=== PATIENT | male | born 1960 | race Caucasian/White ===

== ENCOUNTER 2017-09-18 22:27 | Emergency (ER) | payer MEDICARE, MEDICAID ==
[~2017-09-18] VITALS: Ht 177.8 cm; Wt 104.5 kg
[~2017-09-18 22:27] MED LIST: GABA600T PO; LEVA750T7 PO; NORC7.5T35 PO
[2017-09-18] MEDS ORDERED: ASPIRIN 81 MG CHEW TABLET PO ONE (22:30)
[2017-09-18] MEDS ORDERED: ASPI81TA85 PO (22:38)
[2017-09-18] MEDS ORDERED: HEPARIN DRIP 25,000 UNITS in APPROPRIATE DILUENT 1 EA IV SCH (22:39)
[2017-09-18] MEDS ORDERED: CLOPIDOGREL 300 MG TAB (PLAVIX) PO ONE (22:45)
[2017-09-18] MEDS ORDERED: HEPARIN SOD (PORCINE) 5000 UNITS/ML VIAL IV ONE (22:45)
[2017-09-18] MEDS ORDERED: TENECTEPLASE 50 MG KIT (TNKase)(J3101) IV ONE (22:45)
[2017-09-18] MEDS ORDERED: METOPROLOL TART 25 MG TABLET PO ONE (22:45)
[2017-09-18] MEDS ORDERED: ONDANSETRON 4MG/2ML VIAL (J2405) IV ONE (22:45)
[2017-09-18 22:46] VITALS: BP 117/67
[2017-09-18] MEDS: MORPHINE 4 MG/ML 1ML SYRINGE IV PRN ×2 (22:46→22:55)
[2017-09-18] MEDS: NITROGLYCERIN 0.4 MG SUBL TABLET SL PRN ×2 (22:46→22:57)
[2017-09-18 22:49] LABS: BASO % 0.2 % (0.0-1.0); EOS % 0.1 % (0.0-3.0); IMMATURE GRANULOCYTE % 0.5 % (0-0); LYMPH # 1.9 10^3/uL (1.5-4.5); LYMPH % 10.7 % (24.0-44.0); MEAN CORPUSCULAR HEMOGLOBIN 31.5 pg (27.0-33.0); MEAN CORPUSCULAR HGB CONC 34.7 g/dl (32.0-36.5); MEAN CORPUSCULAR VOLUME 90.7 fl (80.0-96.0); MONO # 0.9 10^3/uL (0.0-0.8); MONO % 5.4 % (0.0-5.0); NEUTROPHILS # 14.6 10^3/uL (1.8-7.7); NEUTROPHILS % 83.1 % (36.0-66.0); PLATELET COUNT, AUTOMATED 277 10^3/uL (150-450); RED CELL DISTRIBUTION WIDTH 12.3 % (11.5-14.5); WHITE BLOOD COUNT 17.5 10^3/uL (4.0-10.0)
[2017-09-18 23:01] LABS: INR 1.07
[2017-09-18] MEDS ORDERED: MORPHINE 4 MG/ML 1ML SYRINGE As Ordered ONE (23:06)
[2017-09-18 23:15] VITALS: BP 144/121
[2017-09-18] MEDS ORDERED: MORPHINE 4 MG/ML 1ML SYRINGE IV PRN (23:15)
[2017-09-18 23:23] LABS: ANION GAP 9 MEQ/L (8-16); BLOOD UREA NITROGEN 19 MG/DL (7-18); CALCIUM LEVEL 8.7 MG/DL (8.5-10.1); CARBON DIOXIDE LEVEL 23 MEQ/L (21-32); CHLORIDE LEVEL 106 MEQ/L (98-107); CREATININE FOR GFR 1.26 MG/DL (0.70-1.30); GLOMERULAR FILTRATION RATE > 60.0 (>56); GLUCOSE, FASTING 121 MG/DL (70-105); SODIUM LEVEL 138 MEQ/L (136-145)
--- NOTE | 2017-09-19 12:59 | REP ---
PORTABLE CHEST: AP portable view of the chest is performed and compared to a prior study of 12/21/2015. Diffuse increased interstitial densities bilaterally are stable with no definite superimposed acute infiltrate. Heart size is essentially upper limits of normal with mild left ventricular prominence. The mediastinal silhouette is unchanged with some calcification of the thoracic aorta. Metallic plate and screws are seen in the lower cervical spine. IMPRESSION: Stable chronic findings as above. Signed by Tomi Barnes MD 09/19/2017 05:36 P
--- NOTE | 2017-09-19 21:37 | ECGEPIP ---
Stationary ECG Study [facility] - ED Test Date: 2017-09-18 Pat Name: MARLENE TRAORE Department: Room: - Gender: M Radio Survey Worker: MICHAELA : 1960 Requested By: RED Tapia Order Number: [id number] Reading MD: Arlene Fiore Measurements Intervals [place] Rate: 107 P: 28 [place]: 150 QRS: -21 QRSD: 85 T: 0 QT: 329 QTc: 440 Interpretive Statements SINUS TACHYCARDIA INFERIOR MYOCARDIAL INFARCTION, ACUTE NJ CLINICAL CORRELATION Electronically Signed On 09-19-2017 21:37:43 EST by Arlene Fiore
--- NOTE | 2017-09-19 21:38 | ECGEPIP ---
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
== END 2017-09-18 23:27 | disposition short-term general hospital (02) ==
LOC: M ED 22:27 → EDBD 22:27 → M ED 23:27
DX: I21.19 ST elevation (STEMI) myocardial infarction involving other coronary artery of inferior wall (principal); R00.0 Tachycardia, unspecified; I25.10 Atherosclerotic heart disease of native coronary artery without angina pectoris; Z95.5 Presence of coronary angioplasty implant and graft; Z79.82 Long term (current) use of aspirin; Z88.1 Allergy status to other antibiotic agents; Z88.8 Allergy status to other drugs, medicaments and biological substances; Z91.018 Allergy to other foods
CPT/HCPCS: 71010; 80048; 82550; 82553; 84484; 85025; 85610; 85730; 93005; 93041; 94760; 96374; 96375; 99291; J2405; J3101

== ENCOUNTER 2017-09-27 23:42 | Observation (INO) | payer MEDICARE, MEDICAID ==
[~2017-09-27] VITALS: Ht 177.8 cm; Wt 100.5 kg
[~2017-09-27 23:42] MED LIST changes: +ASPI81TA85 PO
[2017-09-28] MEDS ORDERED: PLAV1TAB2 PO (00:09)
[2017-09-28] MEDS ORDERED: ASPI81CH32 PO (00:10)
[2017-09-28] MEDS ORDERED: ASPIRIN 81 MG CHEW TABLET As Ordered ONE (00:10)
[2017-09-28] MEDS ORDERED: NITROGLYCERIN 0.4 MG SUBL TABLET As Ordered ONE (00:11)
[2017-09-28] MEDS ORDERED: ASPIRIN 81 MG CHEW TABLET PO ONE (00:15)
[2017-09-28] MEDS: NITROGLYCERIN 0.4 MG SUBL TABLET SL PRN ×2 (00:19→14:43)
[2017-09-28] MEDS ORDERED: NS 1,000 ML IV ONE (00:30)
[2017-09-28 00:33] LABS: ANION GAP 8 MEQ/L (8-16); BLOOD UREA NITROGEN 15 MG/DL (7-18); CALCIUM LEVEL 8.8 MG/DL (8.5-10.1); CARBON DIOXIDE LEVEL 29 MEQ/L (21-32); CHLORIDE LEVEL 103 MEQ/L (98-107); CREATININE FOR GFR 1.25 MG/DL (0.70-1.30); GLOMERULAR FILTRATION RATE > 60.0 (>56); GLUCOSE, FASTING 116 MG/DL (70-105); MEAN CORPUSCULAR HEMOGLOBIN 31.5 pg (27.0-33.0); MEAN CORPUSCULAR HGB CONC 34.4 g/dl (32.0-36.5); MEAN CORPUSCULAR VOLUME 91.6 fl (80.0-96.0); PLATELET COUNT, AUTOMATED 334 10^3/uL (150-450); POTASSIUM SERUM 4.2 MEQ/L (3.5-5.1); SODIUM LEVEL 140 MEQ/L (136-145); WHITE BLOOD COUNT 8.2 10^3/uL (4.0-10.0)
[2017-09-28 00:40] LABS: ADD MANUAL DIFFER YES; DIFF SLIDE NUMBER 133; POSITIVE MORPH POS FLAG
[2017-09-28 02:22] LABS: BASOPHILS 2 % (0-4); EOSINOPHILS 2 % (0-5)
--- NOTE | 2017-09-28 05:48 | ECGEPIP ---
Stationary ECG Study [facility] - ED Test Date: 2017-09-27 Pat Name: MARLENE TRAORE Department: Room: - Gender: M Sheriff'S Officer: TRANG : 1960 Requested By: RED Tapia Order Number: [id number] Reading MD: Leonel Montalvo Measurements Intervals [place] Rate: 65 P: 44 TN: 157 QRS: -20 QRSD: 94 T: -34 QT: 388 QTc: 405 Interpretive Statements SINUS RHYTHM INFERIOR MYOCARDIAL INFARCTION, PROBABLY RECENT Electronically Signed On 09-28-2017 5:48:47 EST by Leonel Montalvo
--- NOTE | 2017-09-28 05:49 | ECGEPIP ---
Stationary ECG Study [facility] - ED Test Date: 2017-09-28 Pat Name: MARLENE TRAORE Department: Room: - Gender: M Project Manager Industrial: FRANCESCA : 1960 Requested By: RED Tapia Order Number: [id number] Reading MD: Leonel Montalvo Measurements Intervals [place] Rate: 61 P: 61 [place]: 156 QRS: -15 QRSD: 98 T: -46 QT: 414 QTc: 417 Interpretive Statements SINUS RHYTHM INFERIOR MYOCARDIAL INFARCTION, PROBABLY RECENT SIMILAR TO 09/27/17 Electronically Signed On 09-28-2017 5:49:21 EST by Leonel Montalvo
[2017-09-28] MEDS ORDERED: CLOPIDOGREL 75 MG TAB PO ONE (08:00)
[2017-09-28] MEDS ORDERED: OMEPRAZOLE 20 MG CAP PO ONE (08:00)
--- NOTE | 2017-09-28 08:00 | REP ---
Clinical: Chest pain . Comparison: 09/18/2017 . Findings: The mediastinum and cardiac silhouette are stable and within normal limits for portable technique. The lung pruett are clear without acute consolidation, effusion, or pneumothorax. Skeletal structures are intact. Impression: No acute cardiopulmonary process appreciated. Signed by Marc Tena MD 09/28/2017 07:51 A
[2017-09-28] MEDS: CLOPIDOGREL 75 MG TAB PO SCH (09:00)
[2017-09-28] MEDS ORDERED: CARV3.12 PO (09:34)
[2017-09-28] MEDS ORDERED: VITA200038 PO (09:35)
[2017-09-28] MEDS ORDERED: NITR4TASL SL (09:36)
[2017-09-28] MEDS ORDERED: MORPHINE 2 MG/ML 1ML SYRINGE IV PRN (10:45)
[2017-09-28] MEDS ORDERED: ACETAMINOPHEN TAB 650MG DOSE (2X325MG) PO PRN (10:45)
[2017-09-28] MEDS: ASPIRIN 81 MG CHEW TABLET PO SCH (14:03)
[2017-09-28] MEDS: CARVedilol 3.125 MG TAB PO SCH ×2 (14:03→22:36)
[2017-09-28] MEDS: VITAMIN D 1,000 INTERNATIONAL UNITS TABLET PO SCH (14:04)
[2017-09-28] MEDS: HEPARIN SOD (PORCINE) 5000 UNITS/ML VIAL SC SCH ×2 (14:17→22:35)
[2017-09-28] MEDS ORDERED: PANTOPRAZOLE 40MG INJ (PROTONIX) (C9113) IV ONE (15:00)
[2017-09-28 16:03] LABS: ALBUMIN 3.1 GM/DL (3.2-5.2); ALBUMIN/GLOBULIN RATIO 0.78 (1.00-1.93); ALKALINE PHOSPHATASE 72 U/L (45-117); ALT/SGPT 38 U/L (12-78); ANION GAP 7 MEQ/L (8-16); AST/SGOT 22 U/L (7-37); BILIRUBIN,TOTAL 0.3 MG/DL (0.2-1.0); BLOOD UREA NITROGEN 13 MG/DL (7-18); CALCIUM LEVEL 8.2 MG/DL (8.5-10.1); CARBON DIOXIDE LEVEL 25 MEQ/L (21-32); CHLORIDE LEVEL 108 MEQ/L (98-107); CREATININE FOR GFR 0.98 MG/DL (0.70-1.30); GLOMERULAR FILTRATION RATE > 60.0 (>56); GLUCOSE, FASTING 98 MG/DL (70-105); MAGNESIUM LEVEL 2.1 MG/DL (1.8-2.4); POTASSIUM SERUM 4.3 MEQ/L (3.5-5.1); SODIUM LEVEL 140 MEQ/L (136-145); TOTAL PROTEIN 7.1 GM/DL (6.4-8.2)
--- NOTE | 2017-09-28 16:42 | ECGEPIP ---
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
--- NOTE | 2017-09-28 18:08 | HPE ---
DATE OF ADMISSION: 09/28/2017 PRIMARY CARE PROVIDER: Dr. Washington HISTORY OF PRESENT ILLNESS: This patient is a 57-year-old male with past medical history significant for recent myocardial infarction (SD) presented to [facility] for acute onset of pressure-like chest pain and shortness of breath. The patient has a significant cardiac history. Previously the patient had three stents placed in 2009. On 09/18/2017 the patient had another episode of myocardial infarction (SD). The patient went to [facility] to get another stent placement. Then patient was discharged home. Yesterday at approximately 10:00 p.m. there was acute onset of pressure type of pain, woke patient up from his sleep. The pain does not have radiation. It has been persistent, lasting approximately one-half hour. The patient stated laying down flat made the pain worse. Nitroglycerin made the patient's pain better, therefore the patient came to [facility] emergency for further evaluation. While the patient was in the emergency room the patient had another episode of chest pain lasting approximately 10 minutes and it got better with nitroglycerin again. Laboratory tests and EKG was performed. There was some mild increase in his troponin and there is some T wave and ST changes suggestive of recent myocardial infarction (SD) and therefore the case was discussed with Dr. Raza and hospitalist team called for admission. PAST MEDICAL HISTORY: Hyperlipidemia. Myocardial infarction, most recent episode occurred 09/18/2017. The patient status post additional stent placement. History of cervical radiculopathies. Status post repair surgery. PAST SURGICAL HISTORY: Cervical neck surgery with anterior approach. Total four cardiac stent placed. Three of them placed in 2009, one placed 09/18/2017. Bilateral rotator cuff repair. Knee repair surgery. Appendectomy. SOCIAL HISTORY: The patient used to smoke three packs daily. Quit approximately four years ago. Since then the patient continues to smoke intermittently, but not as much as three packs on a daily basis. Denies alcohol use. Denies recreational drug use. REVIEW OF SYSTEMS: GENERAL: Denies any fever or chills. HEENT: No vision changes, no auditory changes. CARDIOVASCULAR: Significant history of SD. Presented with pressure-like chest pain. One episode occurred at home, and then another episode while the patient was in the emergency room. The chest pain is pressure-like without radiation and it was persistent. RESPIRATORY: Increased shortness of breath while patient has those chest pain episodes. Denies any pulmonary history. GI: Remote history of heart burn. No nausea, no vomiting. No abdominal pain or diarrhea. MUSCULOSKELETAL: No muscle pain or joint pain. NEUROLOGICAL: Denies any numbness or tingling. OBJECTIVE: VITAL SIGNS: Temperature is 70, respiration rate is 18. Temperature is 97.1. Blood pressure 124/75. Pulse oximetry 97% on room air. GENERAL: No sign of acute distress. Alert and oriented times three. HEENT: Normocephalic, atraumatic. Extraocular movements grossly intact. CARDIOVASCULAR: Distant heart sound, positive S1, S2, regular rate. LUNGS: Clear to auscultation bilaterally. ABDOMEN: Soft, nontender, nondistended. Bowel sounds present. No rebound. No guarding. EXTREMITIES: Musculoskeletal: No lower extremity edema. No sign of cyanosis. There are some tattoo throughout the body. NEUROLOGICAL: No numbness, no tingling. Muscle strength 5 out of 5. LABORATORY DATA: WBC 8.2, hemoglobin is 14.7, hematocrit is 42.7. Platelet count is 334. Sodium is 140, potassium 1.3, chloride is 108. Carbon dioxide 25, BUN 13, creatinine 0.98. GFR greater than 60, fasting glucose is 98. Calcium 8.2, magnesium 2.1, total bilirubin is 0.3. AST 22, ALT 38, alkaline phosphatase 72, troponin I, most recent set is 0.18. Total protein 7.1, albumin 3.1. EKG: Showed sinus rhythm, inferior myocardial infarction, probably recent. ASSESSMENT AND PLAN: 1. Acute chest pain with a history of recent SD. The case was discussed with the machine pie maker, Dr. Raza who recommended overnight observation. On admission, the patient did have troponin of 0.24. However, later set of troponin continued to trend down. The patient will be monitored on cardiac telemetry. The patient is on aspirin, Coreg, and Plavix. The patient did have three stent placed in 2009, most recently 09/18/2017, the patient was brought down to [facility] and got another cardiac stent placed. 2. Dyslipidemia. Per history the patient cannot tolerate any type of statin therapy. 3. Deep venous thrombosis (DVT) prophylaxis. On heparin. ADDENDUM: KS since admission. The patient has another episode of acute chest pain lasting approximately 15 minutes. It resolved with nitroglycerin. Stat lab and stat EKG were obtained which results show improving troponin and there is no change in EKG. During the multiple followups the patient felt that it could be due to anxiety induced chest discomfort. Prior to the chest pain, the patient was frustrated with regard to his emergency room bed. It was so stiff that it made his back hurt and he got irritated and he felt that could trigger his acute chest pain.
[2017-09-28 19:58] VITALS: BP 109/67
--- NOTE | 2017-09-28 23:06 | CR ---
DATE OF CONSULTATION: 09/28/2017 REFERRING PHYSICIAN: Asha Villasenor MD PRIMARY CARE PROVIDER: USAMA Sheppard INDICATION: Chest pain in patient with recent myocardial infarction. HISTORY OF PRESENT ILLNESS: Mr. Soria is previously unknown to me. He is a 57-year-old man who has established coronary artery disease. He underwent percutaneous intervention in 2009 after presenting with acute coronary syndrome and second intervention on September 18, 2017 when he presented initially to our facility with acute inferior wall ST elevation myocardial infarction. He received thrombolytics and was transferred to [facility] where he had a very complicated percutaneous intervention. I do not have the official report of the procedure, but I spoke with Dr. Carmichael and he told me that he had complete revascularization, there was no residual obstructive disease and pre-discharge echocardiogram revealed left ventricle ejection fraction in the neighborhood of 45% with inferior wall hypokinesis. The patient was discharged home and was doing well, but then yesterday started having what he calls "spasm" in his chest on and off during the day. It was not overly severe sensation so he did not make any trips to emergency room or was not particularly alarmed, but then in the evening hours he started having pressure or heaviness that was precordial and nonradiating. It was associated with dyspnea. He noted that lying down made the sensation of both dyspnea and chest discomfort worse. After some hesitation, he eventually came to the emergency room on insistence of his . The initial ECG revealed presence of sinus rhythm with evidence of recent inferior wall myocardial infarction with still some persistent ST elevations and his troponin was marginally elevated at 0.24 (his peak troponin at [facility] was over 30). I was called by emergency room physician and I recommended to obtain a followup tracing especially when the patient became pain free after sublingual nitroglycerin. The follow-up ECGs and troponins revealed no evolution on ECG and his troponin has been going down. He had several more episodes of chest discomfort in emergency room that each lasted a few minutes and resolved spontaneously. At the time of my evaluation when I saw the patient in morning hours he was comfortable. He was describing the history quite accurately. PAST MEDICAL HISTORY: 1. Coronary artery disease as above. 2. Hyperlipidemia. Unfortunately, intolerant of statins, even small doses. He denies history of hypertension and diabetes. PAST SURGICAL HISTORY: Positive for cervical discectomy from anterior approach, bilateral rotator cuff repair, knee surgery and appendectomy. FAMILY HISTORY: Is strongly positive for coronary artery disease. He tells me that virtually every man in his family suffered myocardial infarction by the age of 60 and that includes is first-degree relatives. SOCIAL HISTORY: The patient used to smoke but quit about 4 years ago, but still had occasional cigarettes, but as of lately he denies any since his recent intervention. There is no history of alcohol use and no history of drug use. REVIEW OF SYSTEMS: He denies any fever, chills, nausea, vomiting, diarrhea. No chest pain since the intervention until yesterday. No dyspnea. No palpitations. No syncope, near syncope. No bleeding problems. The rest of review of system is negative. PHYSICAL EXAMINATION: Mr. Soria is a middle-aged man who appears to be approximately his age. He is lying in bed with no apparent distress. Blood pressure 109/67, heart rate in mostly in 60s and 70s. Saturation is 95% on room air. Vital signs have been stable throughout the day. Weight is documented 99.5 kg. He is alert and oriented and appropriate. His jugular venous pressure is not elevated. I do not appreciate any carotid bruits. Lungs are clear to auscultation with good air movement. Heart: Exam regular rhythm. No gallop, rub or murmur. Abdomen: Soft without tenderness or rebound tenderness. He has good peripheral pulses bilaterally. There is no peripheral edema and neurologically he is intact. LABORATORY: CBC is normal and his cardiac enzymes have been negative at the time of my dictation time, 4 for CK and CK-MB. His troponin initially was 0.24 and has been going down since. Albumin is 3.1. Basic metabolic panel is otherwise normal. Liver function tests are normal as well. He has several ECGs, all which are unchanged and reveal recent inferior wall myocardial infarction with persistent ST elevations, but I do not appreciate any trend. Chest x-ray is unremarkable. OUTPATIENT MEDICATIONS: Included - aspirin 81 mg a day - Plavix 75 mg a day - Vitamin D - Coreg 3.5 twice a day. ALLERGIES: He reports intolerance of CLINDAMYCIN, EPINEPHRINE, MUSHROOM, and STATINS. ASSESSMENT/PLAN: Mr. Soria is a middle-aged man who has established coronary artery disease (CAD) and who suffered inferior wall STEMI a week ago, treated with initially thrombolytics and then percutaneous intervention. He comes with chest discomfort that has some features of angina, but overall is atypical. In spite of numerous episodes there is no evolution on ECG and even though his troponin is still mildly elevated, it certainly represents a tail elevation from his recent myocardial infarction. I still think it is prudent to monitor the patient overnight, but provided there will not be any evolution on his ECG and his cardiac enzymes will continue to trend downward, I think he can be discharged home tomorrow. I would continue aspirin and Plavix which is absolutely essential. The patient claims that he cannot get lipid lowering medications even in small doses because he just could not tolerate them. Also his blood pressure is relatively low to tolerate angiotensin-converting enzyme (CRESENCIO) inhibitors, but I think we can try to give him a low-dose beta-connie that he has been on. I tentatively expect that I will be seeing him on outpatient basis. He previously followed with Dr. Pardeep Honeycutt in [facility] in [place], but it has been difficult for him to commute to [place].
[2017-09-29] VITALS: BP 115/71
[2017-09-29] MEDS ORDERED: RAMELTEON 8 MG TAB (ROZEREM) PO PRN (03:00)
[2017-09-29 04:00] VITALS: BP 135/83
[2017-09-29] MEDS: HEPARIN SOD (PORCINE) 5000 UNITS/ML VIAL SC SCH (06:31)
[2017-09-29 07:19] LABS: MEAN CORPUSCULAR HEMOGLOBIN 31.6 pg (27.0-33.0); MEAN CORPUSCULAR HGB CONC 35.1 g/dl (32.0-36.5); PLATELET COUNT, AUTOMATED 314 10^3/uL (150-450); WHITE BLOOD COUNT 8.2 10^3/uL (4.0-10.0)
[2017-09-29 07:45] LABS: ANION GAP 8 MEQ/L (8-16); BLOOD UREA NITROGEN 15 MG/DL (7-18); CALCIUM LEVEL 8.5 MG/DL (8.5-10.1); CARBON DIOXIDE LEVEL 26 MEQ/L (21-32); CHLORIDE LEVEL 104 MEQ/L (98-107); CHOLESTEROL LEVEL 170 MG/DL (<200); GLOMERULAR FILTRATION RATE > 60.0 (>56); GLUCOSE, FASTING 104 MG/DL (70-105); POTASSIUM SERUM 4.3 MEQ/L (3.5-5.1); SODIUM LEVEL 138 MEQ/L (136-145); TRIGLYCERIDES LEVEL 563 MG/DL (<150)
[2017-09-29 08:00] VITALS: BP 113/64
[2017-09-29] MEDS: CARVedilol 3.125 MG TAB PO SCH (08:00)
--- NOTE | 2017-09-29 08:05 | ECGEPIP ---
Stationary ECG Study [facility] - ED Test Date: 2017-09-28 Pat Name: MARLENE TRAORE Department: Room: [place] [address] Gender: M Corporate Logistics Manager: TRANG : 1960 Requested By: RED Tapia Order Number: [id number] Reading MD: Arlene Fiore Measurements Intervals [place] Rate: 57 P: 56 MD: 168 QRS: -8 QRSD: 95 T: -45 QT: 416 QTc: 408 Interpretive Statements SINUS BRADYCARDIA INFERIOR MYOCARDIAL INFARCTION, ACUTE IN [place] 09/27/17 23:56 Electronically Signed On 09-29-2017 8:04:45 EST by Arlene Fiore
[2017-09-29] MEDS ORDERED: CORE6.25 PO (09:17)
[2017-09-29] MEDS ORDERED: PANT40TA2 PO (09:19)
[2017-09-29] MEDS: CLOPIDOGREL 75 MG TAB PO SCH (10:17)
[2017-09-29] MEDS: VITAMIN D 1,000 INTERNATIONAL UNITS TABLET PO SCH (10:17)
[2017-09-29] MEDS: ASPIRIN 81 MG CHEW TABLET PO SCH (10:17)
--- NOTE | 2017-09-29 10:41 | ECGEPIP ---
Stationary ECG Study [facility] Test Date: 2017-09-29 Pat Name: MARLENE TRAORE Department: Room: [place] [address] Gender: M Cna Gna: ebony : 1960 Requested By: Olaf Raza Order Number: [id number] Reading MD: Lindsay Alcaraz Measurements Intervals [place] Rate: 58 P: 24 FL: 152 QRS: -10 QRSD: 101 T: -55 QT: 446 QTc: 438 Interpretive Statements SINUS BRADYCARDIA INFERIOR MYOCARDIAL INFARCTION, PROBABLY RECENT EVOLVING STABLE C/W 09/28/17 RATE SLOWER Electronically Signed On 09-29-2017 10:41:01 EST by Lindsay Alcaraz
--- NOTE | 2017-10-07 06:56 | DSES ---
DATE OF ADMISSION: 09/28/2017 DATE OF DISCHARGE: 09/29/2017 PRIMARY CARE PROVIDER: Dr. Washington. CONSULTANTS: Cardiology, Dr. Raza. DISCHARGE DIAGNOSES: 1. Acute chest pain with a history of recent myocardial infarction (IA). 2. Dyslipidemia. HOSPITALIZATION COURSE: The patient is a 57-year-old male who presented to [facility] on 09/28/2017, with chest pain. Due to history of recent IA on 09/18/2017, the patient was admitted to the progressive care unit (PCU), and aircraft maintenance director, Dr. Raza, was consulted, who recommended overnight cardiac telemetry. Later the patient was followed with serial troponin and repeat electrocardiogram (EKG) was obtained, and there was no significant finding on the EKG, and there was only mild elevation of troponin which has been improved within a few hours. After close monitoring on telemetry and reevaluation by the aircraft maintenance director the next morning, the patient determined stable for discharge with recommendation to followup with Dr. Raza at a scheduled time. The patient is recommended to continue with essential cardiac medication and those instructions were given to the patient. The patient agreed with the plan. OBJECTIVE: VITAL SIGNS: Temperature 97.6, pulse 62, respirations 18, blood pressure 133/64, pulse oximetry 94% on room air. LABORATORY DATA: WBC 8.2, hemoglobin 14.3, hematocrit 40.7, platelet count 314. Sodium 138, potassium 4.3, chloride 104, carbon dioxide 26, BUN 15, creatinine one, GFR greater than 60, fasting glucose 104, calcium 8.5. Triglycerides 553, total cholesterol 170, HDL 17. Troponin series during hospitalization course on 09/28/2017, troponins were 0.24, 0.22, 0.21, 0.18 in a 15-hour span. IMAGING: Chest x-ray on 09/28/2017, showed no acute cardiopulmonary process appreciated. DISCHARGE MEDICATIONS: - carvedilol 6.25 mg by mouth twice a day - pantoprazole 40 mg by mouth daily - aspirin 81 mg by mouth daily - vitamin D3 2000 units by mouth daily - Plavix 75 mg by mouth daily - nitroglycerin 0.4 mg sublingual as needed for chest pain DISCHARGE INSTRUCTIONS: Discontinue line. Discharge home. Activity as tolerated. Low-salt diet as tolerated. The patient shall followup with Dr. Raza in one week. The patient should followup with the primary care provider in 7-10 days. CONDITION ON DISCHARGE: Stable. DISCHARGE TIME: Greater than 30 minutes.
== END 2017-09-29 11:18 | disposition home or self-care (01) ==
LOC: M ED 23:42 → M ED INP 23:43 → UNDOADMOB 09-28 10:32 → UNDODISOB 09-29 11:18
PROVIDERS: ADMIT Internal Medicine; ATTEND Internal Medicine
DX: I21.19 ST elevation (STEMI) myocardial infarction involving other coronary artery of inferior wall (principal); I25.10 Atherosclerotic heart disease of native coronary artery without angina pectoris; E78.5 Hyperlipidemia, unspecified; R79.89 Other specified abnormal findings of blood chemistry; Z95.5 Presence of coronary angioplasty implant and graft; Z87.891 Personal history of nicotine dependence; Z79.899 Other long term (current) drug therapy; Z79.82 Long term (current) use of aspirin; Z79.02 Long term (current) use of antithrombotics/antiplatelets; Z88.1 Allergy status to other antibiotic agents; Z88.4 Allergy status to anesthetic agent; Z88.8 Allergy status to other drugs, medicaments and biological substances; Z91.018 Allergy to other foods; Z82.49 Family history of ischemic heart disease and other diseases of the circulatory system
CPT/HCPCS: 36415; 71010; 80048; 80053; 80061; 82550; 82553; 83735; 84484; 85025; 85027; 93005; 93041; 94760; 96372; 96374; 99285; C9113; G0378

== ENCOUNTER 2017-12-10 10:33 | Emergency (ER) | payer BC, MEDICAID, MEDICARE ==
[2017-12-10 10:54] LABS: BASO % 0.3 % (0.0-1.0); EOS # 0.2 10^3/uL (0.0-0.50); EOS % 2.3 % (0.0-3.0); HEMATOCRIT 44.2 % (42.0-52.0); HEMOGLOBIN 15.6 g/dl (14.0-18.0); IMMATURE GRANULOCYTE % 0.5 % (0-3.0); LYMPH # 2.9 10^3/uL (1.5-4.5); LYMPH % 32.9 % (24.0-44.0); MEAN CORPUSCULAR HEMOGLOBIN 31.1 pg (27.0-33.0); MEAN CORPUSCULAR HGB CONC 35.3 g/dl (32.0-36.5); MONO # 0.7 10^3/uL (0.0-0.8); MONO % 8.2 % (0.0-5.0); NEUTROPHILS # 4.8 10^3/uL (1.8-7.7); NEUTROPHILS % 55.8 % (36.0-66.0); PLATELET COUNT, AUTOMATED 216 10^3/uL (150-450); RED BLOOD COUNT 5.02 10^6/uL (4.30-6.10); RED CELL DISTRIBUTION WIDTH 11.9 % (11.5-14.5); WHITE BLOOD COUNT 8.7 10^3/uL (4.0-10.0)
[2017-12-10 11:08] LABS: INR 0.95; PROTHROMBIN TIME 12.8 SECONDS (12.4-14.5)
[2017-12-10 11:20] LABS: ALBUMIN 3.6 GM/DL (3.2-5.2); ALBUMIN/GLOBULIN RATIO 0.86 (1.00-1.93); ALKALINE PHOSPHATASE 69 U/L (45-117); ALT/SGPT 55 U/L (12-78); ANION GAP 7 MEQ/L (8-16); AST/SGOT 29 U/L (7-37); BILIRUBIN,DIRECT < 0.1 MG/DL (0.0-0.2); BILIRUBIN,TOTAL 0.3 MG/DL (0.2-1.0); BLOOD UREA NITROGEN 17 MG/DL (7-18); CALCIUM LEVEL 8.6 MG/DL (8.5-10.1); CARBON DIOXIDE LEVEL 27 MEQ/L (21-32); CHLORIDE LEVEL 104 MEQ/L (98-107); CPK CREATINE PHOSPHOKINASE 111 U/L (39-308); CREATININE FOR GFR 1.14 MG/DL (0.70-1.30); GLOMERULAR FILTRATION RATE > 60.0 (>56); GLUCOSE, FASTING 121 MG/DL (70-100); POTASSIUM SERUM 4.1 MEQ/L (3.5-5.1); SODIUM LEVEL 138 MEQ/L (136-145); TOTAL PROTEIN 7.8 GM/DL (6.4-8.2); TROPONIN I 0.02 NG/ML (< 0.10)
[2017-12-10 11:26] LABS: CK-MB VALUE MASS 1.4 NG/ML (0.0-3.6); MB/CK RELATIVE INDEX 1.26 (< OR =4); NT-PRO BNP 772 PG/ML (<125)
[2017-12-10 13:16] LABS: CPK CREATINE PHOSPHOKINASE 111 U/L (39-308); TROPONIN I 0.02 NG/ML (< 0.10)
[2017-12-10 13:17] LABS: CK-MB VALUE MASS 1.2 NG/ML (0.0-3.6); MB/CK RELATIVE INDEX 1.08 (< OR =4)
[2017-12-10 20:39] LABS: CK-MB VALUE MASS 1.3 NG/ML (0.0-3.6); CPK CREATINE PHOSPHOKINASE 105 U/L (39-308); MB/CK RELATIVE INDEX 1.23 (< OR =4); TROPONIN I 0.02 NG/ML (< 0.10)
== END 2017-12-10 21:17 | disposition home or self-care (01) ==
LOC: M ED 10:33
DX: R07.89 Other chest pain (principal); I25.2 Old myocardial infarction; I10 Essential (primary) hypertension; E78.00 Pure hypercholesterolemia, unspecified; Z95.5 Presence of coronary angioplasty implant and graft; Z87.891 Personal history of nicotine dependence; Z88.1 Allergy status to other antibiotic agents; Z88.8 Allergy status to other drugs, medicaments and biological substances; Z91.018 Allergy to other foods; Z79.899 Other long term (current) drug therapy; Z79.02 Long term (current) use of antithrombotics/antiplatelets; Z79.82 Long term (current) use of aspirin
CPT/HCPCS: 71045

== ENCOUNTER 2018-05-26 10:58 | Emergency (ER) | payer BC, MEDICAID, MEDICARE ==
[2018-05-26 11:31] LABS: BASO % 0.6 % (0.0-1.0); EOS # 0.1 10^3/uL (0.0-0.50); EOS % 1.9 % (0.0-3.0); HEMATOCRIT 44.6 % (42.0-52.0); HEMOGLOBIN 15.7 g/dl (13.5-17.5); IMMATURE GRANULOCYTE % 0.3 % (0-3.0); LYMPH # 1.7 10^3/uL (1.5-4.5); LYMPH % 23.8 % (24.0-44.0); MEAN CORPUSCULAR HGB CONC 35.2 g/dl (32.0-36.5); MEAN CORPUSCULAR VOLUME 90.8 fl (80.0-96.0); MONO # 0.5 10^3/uL (0.0-0.8); MONO % 6.7 % (0.0-5.0); NEUTROPHILS # 4.9 10^3/uL (1.8-7.7); NEUTROPHILS % 66.7 % (36.0-66.0); PLATELET COUNT, AUTOMATED 194 10^3/uL (150-450); RED BLOOD COUNT 4.91 10^6/uL (4.30-6.10); RED CELL DISTRIBUTION WIDTH 11.9 % (11.5-14.5); WHITE BLOOD COUNT 7.3 10^3/uL (4.0-10.0)
[2018-05-26] MEDS: ONDANSETRON 4MG/2ML VIAL (J2405) IV (11:32)
[2018-05-26] MEDS: MORPHINE 4 MG/ML 1ML VIAL/SYRINGE (J2270) IV (11:33)
[2018-05-26 12:06] LABS: ALBUMIN 3.9 GM/DL (3.2-5.2); ALBUMIN/GLOBULIN RATIO 1.03 (1.00-1.93); ALKALINE PHOSPHATASE 49 U/L (45-117); ALT/SGPT 46 U/L (12-78); ANION GAP 6 MEQ/L (8-16); AST/SGOT 29 U/L (7-37); BILIRUBIN,DIRECT 0.1 MG/DL (0.0-0.2); BILIRUBIN,TOTAL 0.5 MG/DL (0.2-1.0); BLOOD UREA NITROGEN 17 MG/DL (7-18); CALCIUM LEVEL 9.8 MG/DL (8.5-10.1); CARBON DIOXIDE LEVEL 26 MEQ/L (21-32); CHLORIDE LEVEL 110 MEQ/L (98-107); CPK CREATINE PHOSPHOKINASE 282 U/L (39-308); CREATININE FOR GFR 1.49 MG/DL (0.70-1.30); GLOMERULAR FILTRATION RATE 51.8 (>56); GLUCOSE, FASTING 110 MG/DL (70-100); LIPASE 147 U/L (73-393); POTASSIUM SERUM 4.8 MEQ/L (3.5-5.1); SODIUM LEVEL 142 MEQ/L (136-145); TOTAL PROTEIN 7.7 GM/DL (6.4-8.2); TROPONIN I < 0.02 NG/ML (< 0.10)
[2018-05-26 12:12] LABS: CK-MB VALUE MASS 2.9 NG/ML (<3.6); MB/CK RELATIVE INDEX 1.02 (< OR =4); NT-PRO BNP 1161 PG/ML (<125)
[2018-05-26] MEDS ORDERED: ISOVUE-370 76% 100ML VIAL (Q9967) As Ordered (14:17)
[2018-05-26 18:13] LABS: CK-MB VALUE MASS 2.4 NG/ML (<3.6); CPK CREATINE PHOSPHOKINASE 212 U/L (39-308); MB/CK RELATIVE INDEX 1.13 (< OR =4); TROPONIN I < 0.02 NG/ML (< 0.10)
== END 2018-05-26 19:04 | disposition home or self-care (01) ==
LOC: M ED 10:58
DX: R07.9 Chest pain, unspecified (principal); E78.5 Hyperlipidemia, unspecified; I25.10 Atherosclerotic heart disease of native coronary artery without angina pectoris; I25.2 Old myocardial infarction; M54.12 Radiculopathy, cervical region; Z95.5 Presence of coronary angioplasty implant and graft; Z79.899 Other long term (current) drug therapy; Z79.82 Long term (current) use of aspirin; Z79.02 Long term (current) use of antithrombotics/antiplatelets; Z88.1 Allergy status to other antibiotic agents; Z88.8 Allergy status to other drugs, medicaments and biological substances; Z91.018 Allergy to other foods
CPT/HCPCS: J2270

== ENCOUNTER → 2018-07-18 | Outpatient (CLI) | payer BC | LOC: M SMT 11:23 | DX: R05 Cough (principal); I50.9 Heart failure, unspecified | CPT/HCPCS: 71046 ==

== ENCOUNTER 2018-10-27 22:45 | Emergency (ER) | payer BC ==
[~2018-10-27] VITALS: Ht 177.8 cm; Wt 109.3 kg
[~2018-10-27 22:45] MED LIST changes: +ASPI81CH32 PO; +CARV3.12 PO; +CORE6.25 PO; +FENO145T13; -GABA600T PO; +GABA600T4 PO; +NITR4TASL SL; +PANT40TA3 PO; +PLAV1TAB2 PO; +VITA200038 PO
[2018-10-27 23:28] LABS: BASO % 0.5 % (0.0-1.0); EOS # 0.2 10^3/uL (0.0-0.50); EOS % 2.6 % (0.0-3.0); HEMATOCRIT 40.5 % (42.0-52.0); HEMOGLOBIN 14.3 g/dl (13.5-17.5); LYMPH # 2.5 10^3/uL (1.5-4.5); LYMPH % 31.3 % (24.0-44.0); MEAN CORPUSCULAR HEMOGLOBIN 32.8 pg (27.0-33.0); MEAN CORPUSCULAR HGB CONC 35.3 g/dl (32.0-36.5); MEAN CORPUSCULAR VOLUME 92.9 fl (80.0-96.0); MONO # 0.6 10^3/uL (0.0-0.8); MONO % 7.2 % (0.0-5.0); NEUTROPHILS # 4.7 10^3/uL (1.8-7.7); PLATELET COUNT, AUTOMATED 231 10^3/uL (150-450); RED BLOOD COUNT 4.36 10^6/uL (4.30-6.10)
[2018-10-27] MEDS ORDERED: CARV12.5 PO (23:30)
[2018-10-27] MEDS ORDERED: LISI10TA4 PO (23:31)
[2018-10-27] MEDS ORDERED: EZET10TA PO (23:31)
[2018-10-27] MEDS ORDERED: TORS5TAB2 PO (23:32)
[2018-10-28] LABS: BLOOD UREA NITROGEN 18 MG/DL (7-18); CALCIUM LEVEL 8.5 MG/DL (8.5-10.1); CARBON DIOXIDE LEVEL 25 MEQ/L (21-32); CHLORIDE LEVEL 107 MEQ/L (98-107); CPK CREATINE PHOSPHOKINASE 115 U/L (39-308); CREATININE FOR GFR 1.36 MG/DL (0.70-1.30); GLOMERULAR FILTRATION RATE 57.3 (>56); GLUCOSE, FASTING 158 MG/DL (70-100); MB/CK RELATIVE INDEX 1.13 (< OR =4); POTASSIUM SERUM 3.9 MEQ/L (3.5-5.1); SODIUM LEVEL 139 MEQ/L (136-145); TROPONIN I < 0.02 NG/ML (< 0.10)
[2018-10-28] MEDS ORDERED: ISOVUE-370 76% 100ML VIAL (Q9967) As Ordered ONE (00:51)
[2018-10-28] MEDS ORDERED: ONDANSETRON 4MG/2ML VIAL (J2405) IV ONE (01:00)
[2018-10-28] MEDS ORDERED: NS 1,000 ML IV ONE (01:00)
--- NOTE | 2018-10-28 01:58 | REPVR ---
EXAM: CT Angiography Chest With Contrast EXAM DATE/TIME: 10/28/2018 12:46 AM CLINICAL HISTORY: 58 years old, male; Pain; Chest pain; Type not specified; Additional info: Chest pain, positive d-dimer TECHNIQUE: Axial computed tomographic angiography images of the chest with intravenous contrast using CT angiography protocol. All CT scans at this facility use at least one of these dose optimization techniques: automated exposure control; mA and/or kV adjustment per patient size (includes targeted exams where dose is matched to clinical indication); or iterative reconstruction. Coronal and sagittal reformatted images were created and reviewed. MIP reconstructed images were created and reviewed. CONTRAST: 75 ml of iso administered intravenously. COMPARISON: CT ANGIO CHEST 05/26/2018 2:38 PM FINDINGS: Pulmonary arteries: The main pulmonary artery measures 24 mm. No pulmonary embolism is identified. Aorta: The ascending thoracic aorta measures 28 mm. Lungs: Minimal scattered subpleural bullous change with interstitial prominence and mild right lower lobe and minimal left lower lobe fibro-atelectatic change. Pleural space: Minimal loculated right pleural effusion in the right base posteriorly. Heart: Normal. No cardiomegaly. No pericardial effusion. Liver: There is fatty infiltration of the liver. Lymph nodes: Small mediastinal and bilateral hilar nodes which are borderline in overall Bones/joints: Slight anterior wedge configuration of several mid thoracic segments which appear to be chronic. Soft tissues: Unremarkable. IMPRESSION: 1. Minimal loculated right pleural effusion which is slightly increased since 05/26/2018. 2. Minimal subpleural bullous change and interstitial prominence with mild right lower lobe and minimal left lower lobe fibro-atelectatic change. 3. Fatty infiltration of the liver. 4. Borderline mediastinal and hilar nodes which are nonspecific and slightly increased overall since the prior study. 5. No pulmonary embolism is identified. Electronically signed by: Kong Garcia On 10/28/2018 01:57:51 AM
[2018-10-28 06:39] LABS: CPK CREATINE PHOSPHOKINASE 107 U/L (39-308); MB/CK RELATIVE INDEX 1.12 (< OR =4); TROPONIN I < 0.02 NG/ML (< 0.10)
[2018-10-28 07:06] VITALS: BP 100/60
--- NOTE | 2018-10-28 08:05 | REP ---
Portable chest x-ray: Single view. History: Chest pain. Comparison chest x-ray: July 18, 2018. Findings: EKG monitoring electrodes overlie the chest. There is a power plant electrode device projecting over the left lateral rib cage. The patient is status post lower cervical spine discectomy and fusion plating. There is discoid atelectasis in the right lung base. There is some chronic pleural thickening and slight blunting of the right lateral pleural angle. Interstitial markings are mildly prominent bilaterally and diffusely as before. Heart size is unchanged. No acute infiltrate. Electronically Signed by Clive White MD 10/28/2018 08:20 A
--- NOTE | 2018-10-28 11:23 | ECGEPIP ---
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
--- NOTE | 2018-10-28 11:30 | ECGEPIP ---
Stationary ECG Study [facility] - ED Test Date: 2018-10-28 Pat Name: MARLENE TRAORE Department: Room: - Gender: M It Director: : 1960 Requested By: RED Tapia Order Number: [id number] Reading MD: Leonel Montalvo Measurements Intervals [place] Rate: 46 P: 33 [place]: 186 QRS: 8 QRSD: 112 T: -7 QT: 436 QTc: 382 Interpretive Statements SINUS BRADYCARDIA INFERIOR MYOCARDIAL INFARCTION, PROBABLY OLD NSTTW ABNORMALITIES SIMILAR TO 10/27/18 Electronically Signed On 10-28-2018 11:30:10 EST by Leonel Montalvo
--- NOTE | 2018-10-29 08:21 | ED PDOC ---
Post-Departure Follow-Up radiology report faxed to Darlene Washington Sarah MD Oct 29, 2018 08:21
== END 2018-10-28 07:08 | disposition home or self-care (01) ==
LOC: EDBD 22:45 → M ED 22:45
DX: R07.9 Chest pain, unspecified (principal); R00.1 Bradycardia, unspecified; J90 Pleural effusion, not elsewhere classified; I25.10 Atherosclerotic heart disease of native coronary artery without angina pectoris; I25.2 Old myocardial infarction; Z95.5 Presence of coronary angioplasty implant and graft; Z95.810 Presence of automatic (implantable) cardiac defibrillator; Z88.1 Allergy status to other antibiotic agents; Z88.6 Allergy status to analgesic agent; Z91.018 Allergy to other foods; Z79.899 Other long term (current) drug therapy; Z79.82 Long term (current) use of aspirin; Z79.02 Long term (current) use of antithrombotics/antiplatelets
CPT/HCPCS: 71045; 71275; 80048; 82550; 82553; 84484; 85025; 85379; 93005; 93041; 94760; 96374; 99285; J2405; Q9967